=== PATIENT | male | born 1985 | race Hispanic/Latino ===

== ENCOUNTER 2016-11-27 18:56 | Emergency (ER) | payer OTHER ==
[~2016-11-27] VITALS: Ht 157.5 cm; Wt 62.9 kg
[2016-11-27 22:11] VITALS: BP 138/74
== END 2016-11-27 22:12 | disposition short-term general hospital (02) ==
LOC: EME 18:56 → EDBD 18:56 → EXP 18:56
PROC: 3E0234Z Introduction of Serum, Toxoid and Vaccine into Muscle, Percutaneous Approach (ICD-10-PCS; principal; 2016-11-27)
DX: S01.112A Laceration without foreign body of left eyelid and periocular area, initial encounter (principal); S05.42XA Penetrating wound of orbit with or without foreign body, left eye, initial encounter; W22.8XXA Striking against or struck by other objects, initial encounter
CPT/HCPCS: 99281; 99284; J3010